=== PATIENT | male | born 1975 | race African-American/Black ===

== ENCOUNTER 2022-06-28 11:59 | Emergency (ER) | payer SELFPAY ==
[2022-06-28 13:15] LABS: Absolute Lymphocytes (CBC) 1.7 K/uL (0.7-4.9); Hematocrit 44.9 % (39.6-49.0); Lymphocytes % 23.7 % (15.3-44.8); MCV 90.3 fL (80-100); MPV 9.7 fL (7.6-11.3); RBC Red Blood Cell Count 4.97 M/uL (4.33-5.43)
--- NOTE | 2022-06-28 13:33 | RAD REPORT ---
EXAM DESCRIPTION: CTFacial Bones W Con Mpr06/28/2022 1:22 pm CLINICAL HISTORY: Right facial pain and swelling COMPARISON: None. TECHNIQUE: Computed axial tomography of the face obtained with coronal and sagittal reconstruction. 50 cc Isovue-[address] scans are performed using dose optimization technique as appropriate and may include automated exposure control or mA/KV adjustment according to patient size. FINDINGS: The globes are normal size and density. No stranding within the periorbital fat. The parotid and submandibular glands appear unremarkable. The parapharyngeal fat is clear. No soft abscess is visualized. Dental caries is present Fluid within the sinuses is not noted. Mucus retention cysts right maxillary sinus. Edema within the subcutaneous tissues left cheek IMPRESSION: Dental caries. Edema within the subcutaneous left cheek may indicate a cellulitis
--- NOTE | 2022-06-28 13:44 | ER ---
Nurse's Notes [facility] Name: Amor Hamilton Age: 47 yrs Sex: Male : 1975 Arrival Date: 06/28/2022 Time: 12:14 Bed 14 Private MD: Diagnosis: Cellulitis of face Presentation: 06/28 12:22 Chief complaint: Patient states: LEFT SUBORBITAL SWELLING SINCE LAST PM. Coronavirus bp screen: At this time, the client does not indicate any symptoms associated with coronavirus-19. Ebola Screen: No symptoms or risks identified at this time. Initial Sepsis Screen: Does the patient meet any 2 criteria? No. Patient's initial sepsis screen is negative. Does the patient have a suspected source of infection? No. Patient's initial sepsis screen is negative. Risk Assessment: Do you want to hurt yourself or someone else? Patient reports no desire to harm self or others. Onset of symptoms is unknown. 12:22 Method Of Arrival: Ambulatory bp 12:22 Acuity: YULIA 4 bp Triage Assessment: 12:23 General: Appears in no apparent distress. comfortable, Behavior is calm, cooperative, bp appropriate for age. Pain: Denies pain. EENT: LEFT SUBORBITAL SWELLING. Neuro: No deficits noted. Cardiovascular: No deficits noted. Respiratory: No deficits noted. GI: No signs and/or symptoms were reported involving the gastrointestinal system. : No signs and/or symptoms were reported regarding the genitourinary system. Derm: No deficits noted. Musculoskeletal: No deficits noted. Historical: - Allergies: 12:23 No Known Allergies; bp - Home Meds: 12:23 None [Active]; bp - PMHx: 12:23 None; bp - Immunization history:: Adult Immunizations up to date. - Social history:: Smoking status: Patient denies any tobacco usage or history of. Screenin:24 Abuse screen: Denies threats or abuse. Denies injuries from another. Nutritional bp screening: No deficits noted. Tuberculosis screening: No symptoms or risk factors identified. Fall Risk None identified. Assessment: 12:24 General: SEE TRIAGE NOTE. bp 13:58 Reassessment: DC ON HOLD FOR IV ABX. bp 14:31 Reassessment: PT DC HOME. bp Vital Signs: 12:22 BP 118 / 79; Pulse 91; Resp 16; Temp 97.5; Pulse Ox 98% ; Weight 111.13 kg; Height 6 bp ft. 2 in. (187.96 cm); 13:57 BP 114 / 84; Pulse 75; Resp 16; Pulse Ox 100% ; bp 14:30 BP 105 / 79; Pulse 73; Resp 15; Pulse Ox 100% ; bp 12:22 Body Mass Index 31.46 (111.13 kg, 187.96 cm) bp ED Course: 12:14 Patient arrived in ED. am2 12:22 Blayne Amaya, RN is Primary Nurse. bp 12:22 Triage completed. bp 12:23 Arm band placed on. bp 12:24 Patient has correct armband on for positive identification. Bed in low position. Call bp light in reach. Side rails up X2. 12:31 Miguel Nova MD is Attending Physician. kdr 13:05 Inserted saline lock: 20 gauge in right antecubital area, using aseptic technique. bp Blood collected. 13:24 CT Facial Bones W/ Con \T\ Mpr In Process Unspecified. EDMS 14:31 No provider procedures requiring assistance completed. IV discontinued, intact, bp bleeding controlled, No redness/swelling at site. Pressure dressing applied. Administered Medications: 13:57 Drug: Clindamycin 600 mg Route: IVPB; Infused Over: 30 mins; Site: right antecubital; bp 14:32 Follow up: IV Status: Completed infusion; IV Intake: 50ml bp Medication: 12:24 VIS not applicable for this client. bp Intake: 14:32 IV: 50ml; Total: 50ml. bp Outcome: 13:43 Discharge ordered by . kdr 14:31 Discharged to home ambulatory. bp 14:31 Condition: stable 14:31 Discharge instructions given to patient, Instructed on discharge instructions, follow up and referral plans. medication usage, Demonstrated understanding of instructions, follow-up care, medications, Prescriptions given X 1. 14:33 Patient left the ED. bp Signatures: Dispatcher [employer] EDMS Miguel Nova MD MD kdr Moreno, Amanda am2 Blayne Amaya, RN RN bp
--- NOTE | 2022-06-28 13:44 | EDPHYS ---
Physician Documentation [facility] Name: Amor Hamilton Age: 47 yrs Sex: Male : 1975 Arrival Date: 06/28/2022 Time: 12:14 Bed 14 Private MD: ED Physician Miguel Nova HPI: 06/28 12:51 This 47 yrs old Black Male presents to ER via Ambulatory with complaints of Facial kdr Swelling. 12:51 Since last night, the patient has noted increasing swelling in the left supraorbital kdr supra maxillary area. He denies any trauma to that area. He has not had this before. He does not feel any impingement on his vision at this time. There is mild asymmetry to his face which may be accounted for by the presence of an underlying pathology. Onset: The symptoms/episode began/occurred suddenly. Severity of symptoms: At their worst the symptoms were mild in the emergency department the symptoms are unchanged. The patient has not experienced similar symptoms in the past. The patient has not recently seen a physician. Historical: - Allergies: 12:23 No Known Allergies; bp - Home Meds: 12:23 None [Active]; bp - PMHx: 12:23 None; bp - Immunization history:: Adult Immunizations up to date. - Social history:: Smoking status: Patient denies any tobacco usage or history of. ROS: 12:51 Constitutional: Negative for fever, chills, and weight loss, Eyes: Negative for injury, kdr pain, redness, and discharge, Neck: Negative for injury, pain, and swelling, Cardiovascular: Negative for chest pain, palpitations, and edema, Respiratory: Negative for shortness of breath, cough, wheezing, and pleuritic chest pain, Abdomen/GI: Negative for abdominal pain, nausea, vomiting, diarrhea, and constipation, Back: Negative for injury and pain. 12:51 ENT: Positive for Left facial infraorbital left nasal fold and supra maxillary tenderness and swelling. There is no obvious pointing mass or abscess.. Exam: 12:51 Constitutional: This is a well developed, well nourished patient who is awake, alert, kdr and in no acute distress. Head/Face: Normocephalic, atraumatic. Eyes: Pupils equal round and reactive to light, extra-ocular motions intact. Lids and lashes normal. Conjunctiva and sclera are non-icteric and not injected. Cornea within normal limits. Periorbital areas with no swelling, redness, or edema. Neck: Trachea midline, no thyromegaly or masses palpated, and no cervical lymphadenopathy. Supple, full range of motion without nuchal rigidity, or vertebral point tenderness. No Meningismus. Chest/axilla: Normal chest wall appearance and motion. Nontender with no deformity. No lesions are appreciated. 12:51 Head/face: Noted is swelling, that is mild, tenderness, that is mild, of the left cheek. Vital Signs: 12:22 BP 118 / 79; Pulse 91; Resp 16; Temp 97.5; Pulse Ox 98% ; Weight 111.13 kg; Height 6 bp ft. 2 in. (187.96 cm); 13:57 BP 114 / 84; Pulse 75; Resp 16; Pulse Ox 100% ; bp 14:30 BP 105 / 79; Pulse 73; Resp 15; Pulse Ox 100% ; bp 12:22 Body Mass Index 31.46 (111.13 kg, 187.96 cm) bp MDM: 13:43 Patient medically screened. kdr 16:52 Data reviewed: vital signs, nurses notes, lab test result(s), radiologic studies. kdr Counseling: I had a detailed discussion with the patient and/or guardian regarding: the historical points, exam findings, and any diagnostic results supporting the discharge/admit diagnosis, lab results, radiology results, the need for outpatient follow up. 06/28 12:39 Order name: CBC with Diff; Complete Time: 13:42 kdr 06/28 12:39 Order name: Chem 7 kdr 06/28 12:38 Order name: CT Facial Bones W/ Con \T\ Mpr; Complete Time: 13:42 kdr 06/28 13:26 Order name: Labs - recollect needed: recollect green top / it's hemolyzed; Complete eb Time: 13:57 06/28 14:12 Order name: Labs - recollect needed: recollect the recollect/ inside lab paged; eb Complete Time: 14:22 Administered Medications: 13:57 Drug: Clindamycin 600 mg Route: IVPB; Infused Over: 30 mins; Site: right antecubital; bp 14:32 Follow up: IV Status: Completed infusion; IV Intake: 50ml bp Disposition Summary: 06/28/22 13:43 Discharge Ordered Location: Home kdr Problem: new kdr Symptoms: have improved kdr Condition: Stable kdr Diagnosis - Cellulitis of face kdr Followup: kdr - With: Private Physician - When: 2 - 3 days - Reason: If symptoms return, Further diagnostic work-up, Recheck today's complaints, Continuance of care, Re-evaluation by your physician Discharge Instructions: - Discharge Summary Sheet kdr - Cellulitis, Adult, [id number] kdr Forms: - Medication Reconciliation Form kdr - Thank You Letter kdr - Antibiotic Education kdr - Work release form eb Prescriptions: - Clindamycin HCl 300 mg Oral Capsule - take 1 capsule by ORAL route every 6 hours for 10 days; 40 capsule; Refills: 0, kdr Product Selection Permitted Signatures: Dispatcher [employer] EDMiguel Casas MD MD kdr Peltier, Brian RN RN Amanda Dale Corrections: (The following items were deleted from the chart) 13:19 12:42 Orbits W/Cont ordered. EDMS EDMS
[2022-06-28] MEDS ORDERED: CLINDAMYCIN 600MG/D5W 600 MG/50 ML BAG IV ONE (14:04)
[2022-06-28 14:55] VITALS: TEMP 97.5
[2022-06-28 15:15] VITALS: O2SAT 100
[2022-06-28 15:17] VITALS: BP 105/79
== END 2022-06-28 14:33 | disposition home or self-care (01) ==
LOC: ER 11:59
DX: L03.211 Cellulitis of face (principal)
CPT/HCPCS: 36415; 70487; 76377; 80048; 85025; 96365; 99284